=== PATIENT | female | born 1995 | race Caucasian/White ===

== ENCOUNTER → 2021-06-15 23:35 | Observation (INO) | END | disposition home or self-care (01) | LOC: 1NENULAB | PROVIDERS: ADMIT Advanced Practice Midwife; ATTEND Advanced Practice Midwife ==

== ENCOUNTER 2021-06-17 18:53 | Inpatient (IN) ==
[~2021-06-17 18:53] MED LIST: *HR* Nalbuphine 10 MG/ML AMPUL IV PRN; Azithromycin 500 MG in 0.9 % Sodium Chloride 250 ML IVPB PRN; Famotidine 20 MG/2 ML VIAL IVP PRN; Lidocaine 1% 20 ML MDV INFILT PRN; Metoclopramide 10 MG/2 ML VIAL IVP PRN; Naloxone 0.4 MG/ML INJ IVP PRN; Ondansetron 4 MG/2 ML VIAL IVP PRN
[2021-06-17] MEDS ORDERED: Epidural Premix (fent/bupiv) 110 ML EP ONE (19:21)
[2021-06-17] MEDS: Ringers Solution, Lactated 1,000 ML IVC SCH ×2 (20:21→22:11)
[2021-06-17] MEDS ORDERED: EPHEDrine 50 MG/ML VIAL IVP PRN (20:27)
[2021-06-17 20:53] LABS: Basophils % 0.2 %; Eosinophils % 0.2 %; Hematocrit 42.7 % (35.3-44.9); Hemoglobin 14.2 g/dL (11.5-15.4); Immature Granulocytes % 0.7 % (0-4); Lymphocytes # 1.5 K/mcL (0.6-4.6); Lymphocytes % 12.1 %; Mean Corpuscular HGB Conc 33.3 g/dL (31.6-35.5); Mean Corpuscular Hemoglobin 29.2 pg (28.0-33.3); Mean Corpuscular Volume 87.9 fL (83.0-100.0); Mean Platelet Volume 10.3 fL (9.4-12.4); Monocytes # 0.4 K/mcL (0.0-1.3); Monocytes % 2.8 %; Neutrophils # 10.7 K/mcL (1.6-8.9); Platelet Count 175 K/mcL (140-400); Red Blood Count 4.86 M/mcL (3.82-4.97); Red Cell Distribution Width 13.2 % (11.5-14.5); White Blood Count 12.8 K/mcL (4.3-11.1)
[2021-06-17 21:02] LABS: Amphetamine Screen,Urine Negative ng/mL (Cutoff=1000); Barbiturate Screen,Urine Negative ng/mL (Cutoff=200); Benzodiazepines Screen,Urine Negative ng/mL (Cutoff=200); Cannabinoid Screen,Urine Negative ng/mL (Cutoff = 50); Cocaine Screen,Urine Negative ng/mL (Cutoff= 300); Opiate Screen,Urine Negative ng/mL (Cutoff=300); Phencyclidine Screen,Urine Negative ng/mL (Cutoff=25)
[2021-06-17] MEDS: Epidural Premix (fent/bupiv) 110 ML EP SCH (22:12)
[2021-06-17] MEDS ORDERED: Lidocaine/EPI 1:200k 2% PF 20 ML VIAL ONE (22:45)
[2021-06-17] MEDS ORDERED: Sodium Bicarbonate 50 MEQ/50 ML VIAL ONE (22:45)
[2021-06-18] MEDS ORDERED: Oxytocin 20 units/ LR 1000 mL 20 UNIT/1,000 ML BAG IVC SCH ×2 (00:45→17:19)
[2021-06-18] MEDS: Ringers Solution, Lactated 1,000 ML IVC SCH ×2 (01:35→09:48)
[2021-06-18] MEDS: Epidural Premix (fent/bupiv) 110 ML EP SCH ×2 (04:02→09:46)
[2021-06-18] MEDS ORDERED: Ondansetron ODT 4 MG TAB.RAPDIS SL PRN (17:19)
[2021-06-18] MEDS ORDERED: Measles/Mumps/Rubella Vacc 0.5 ML VIAL SQ PRN (17:19)
[2021-06-18] MEDS ORDERED: Benzocaine/Menthol 56 GM AEROSOL SPRAY TP PRN (17:19)
[2021-06-18] MEDS ORDERED: Lanolin 7 G OINT...G. TP PRN (17:19)
[2021-06-18] MEDS: Ibuprofen 600 MG TABLET PO SCH ×2 (18:04→23:06)
[2021-06-18] MEDS ORDERED: Chloraseptic Spray 177 ML BOTTLE MM PRN (22:47)
[2021-06-18] MEDS: Acetaminophen 325 MG TABLET PO SCH (23:06)
[2021-06-19] MEDS: Acetaminophen 325 MG TABLET PO SCH ×2 (05:14→22:12)
[2021-06-19] MEDS: Ibuprofen 600 MG TABLET PO SCH (05:14)
[2021-06-19] MEDS ORDERED: Prenatal Vit/FA 1 EACH TABLET PO SCH (09:00)
[2021-06-19 11:09] VITALS: O2SAT 98
[2021-06-19 23:48] VITALS: BP 133/88; PULSE 85; TEMP 98.6
[2021-06-20] MEDS: Ibuprofen 600 MG TABLET PO SCH (02:23)
== END 2021-06-20 03:30 | disposition home or self-care (01) | DRG 807 ==
LOC: 1NENULAB → 1NENUOBS 06-18 15:48
PROVIDERS: ADMIT Advanced Practice Midwife; ATTEND Advanced Practice Midwife